=== PATIENT | female | born 1955 | race Caucasian/White ===

== ENCOUNTER 2016-07-06 09:20 | Emergency (ER) | payer OTHER ==
[~2016-07-06] VITALS: Wt 46.5 kg
[2016-07-06] MEDS ORDERED: PERCOCET 325 MG1 TA2 PO (14:09)
[2016-07-06] MEDS ORDERED: ZOFRAN ODT4 MG PO (14:09)
[2016-07-06 14:24] VITALS: BP 129/84
== END 2016-07-06 14:16 | disposition home or self-care (01) ==
LOC: ED 09:20
DX: J98.59 Other diseases of mediastinum, not elsewhere classified (principal); G95.89 Other specified diseases of spinal cord; F17.210 Nicotine dependence, cigarettes, uncomplicated
CPT/HCPCS: J1885; J2405; J3010; Q9967

== ENCOUNTER → 2018-01-06 | Outpatient (CLI) | payer OTHER ==
[~2018-01-06] MED LIST: PERCOCET 325 MG1 TA2 PO; ZOFRAN ODT4 MG PO
[2018-01-06 10:44] LABS: HEMATOCRIT 33.6 % (37.0-47.0); HEMOGLOBIN 10.8 g/dL (12.5-16.0); MEAN CELL VOLUME 86 fl (78-100); MEAN CORPUSCULAR HEMOGLOBIN 28 pg (27-31); MEAN CORPUSCULAR HGB CONC 32 g/dL (33-37); MEAN PLATELET VOLUME 9.6 fl (7.4-10.4); PLATELET COUNT 316 K/mm3 (130-400); RED BLOOD COUNT 3.89 M/mm3 (4.10-5.30); RED CELL DISTRIBUTION WIDTH 14.9 % (11.5-14.5); WHITE BLOOD COUNT 12.5 K/mm3 (4.8-10.8)
[2018-01-06 10:49] LABS: CALCIUM 8.1 mg/dL (8.4-10.2); POTASSIUM 3.2 mmol/L (3.6-5.0)
[2018-01-06 11:18] LABS: BAND 2 % (0-10); LYMPHOCYTE 9 % (20-51); MONOCYTE 13 % (3-10); NEUTROPHILS 76 % (42-75)
== END ==
LOC: LAB 09:18 → EDSTATUS 09:24 → LAB 09:26
PROVIDERS: Family Medicine
DX: J18.1 Lobar pneumonia, unspecified organism (principal)

== ENCOUNTER 2018-09-25 10:35 | Emergency (ER) | payer SELFPAY ==
[~2018-09-25] VITALS: Ht 172.7 cm; Wt 41.6 kg
[2018-09-25] MEDS ORDERED: OXYCODONE HCL10 M1 PO (11:22)
[2018-09-25] MEDS ORDERED: NEURONTIN600 M1 PO (11:22)
[2018-09-25 11:28] LABS: ALBUMIN 2.7 g/dL (3.4-4.8); HEMATOCRIT 29.9 % (37.0-47.0); HEMOGLOBIN 9.8 g/dL (12.5-16.0); MEAN CELL VOLUME 75 fl (78-100); MEAN CORPUSCULAR HGB CONC 33 g/dL (33-37); MEAN PLATELET VOLUME 9.4 fl (7.4-10.4); PLATELET COUNT 321 K/mm3 (130-400); RED BLOOD COUNT 4.01 M/mm3 (4.10-5.30); RED CELL DISTRIBUTION WIDTH 17.2 % (11.5-14.5); SODIUM 133 mmol/L (136-145); WHITE BLOOD COUNT 16.5 K/mm3 (4.8-10.8)
[2018-09-25 11:29] LABS: CALCIUM 8.6 mg/dL (8.3-10.5)
[2018-09-25 11:30] LABS: GLUCOSE 128 mg/dL (65-105)
[2018-09-25 11:31] LABS: TOTAL PROTEIN 6.8 g/dL (6.2-8.1)
[2018-09-25 11:32] LABS: CARBON DIOXIDE 27 mmol/L (23-31); PROTHROMBIN TIME 11.7 SECONDS (9.0-12.0); TOTAL BILIRUBIN 0.7 mg/dL (0.2-1.2)
[2018-09-25 11:36] LABS: AST-SGOT 15 U/L (5-34)
[2018-09-25 11:37] LABS: ALT/SGPT 13 U/L (0-55)
[2018-09-25 11:39] LABS: POTASSIUM 2.5 mmol/L (3.5-5.1)
[2018-09-25 11:44] LABS: TROPONIN-I < 0.03 ng/mL (<0.030)
[2018-09-25 11:48] LABS: BAND 10 % (0-10); LYMPHOCYTE 5 % (20-51); MEAN CORPUSCULAR HEMOGLOBIN 24 pg (27-31); MONOCYTE 11 % (3-10); NEUTROPHILS 74 % (42-75)
[2018-09-25 11:49] LABS: MICROCYTOSIS 2+
[2018-09-25 11:50] LABS: HYPOCHROMIA 1+
[2018-09-25 13:54] LABS: PH-URINE 5.5 (5.0 - 8.0); URINE APPEARANCE CLEAR; URINE COLOR YELLOW
[2018-09-25 13:55] LABS: URINE BILIRUBIN NEGATIVE (NEGATIVE); URINE BLOOD NEGATIVE (NEGATIVE); URINE GLUCOSE NEGATIVE (NEGATIVE); URINE KETONE NEGATIVE (NEGATIVE); URINE LEUKOCYTE ESTERASE NEGATIVE (NEGATIVE); URINE NITRATE NEGATIVE (NEGATIVE); URINE PROTEIN(semi-quant) TRACE mg/dL (NEGATIVE); URINE UROBILINOGEN NORMAL (NORMAL)
[2018-09-25 15:25] VITALS: BP 95/50
== END 2018-09-25 15:27 | disposition short-term general hospital (02) ==
LOC: ED 10:35
PROVIDERS: Nurse Practitioner Primary Care
DX: J18.1 Lobar pneumonia, unspecified organism (principal); E87.6 Hypokalemia; F17.210 Nicotine dependence, cigarettes, uncomplicated; Z88.0 Allergy status to penicillin; Z98.890 Other specified postprocedural states
CPT/HCPCS: J1956; J2060; J3480; Q9967

== ENCOUNTER 2019-06-29 16:25 | Emergency (ER) | payer SELFPAY ==
[~2019-06-29] VITALS: Ht 152.4 cm; Wt 39.5 kg
[~2019-06-29 16:25] MED LIST changes: +NEURONTIN600 M1 PO; +OXYCODONE HCL10 M1 PO
[2019-06-29 16:32] VITALS: BP 129/54
[2019-06-29] MEDS ORDERED: LORAZEPAM0.5 M1 PO (16:39)
[2019-06-29] MEDS ORDERED: PROAIR HFA0.09 MG/AC IH (16:39)
[2019-06-29 17:07] LABS: HEMATOCRIT 29.3 % (37.0-47.0); HEMOGLOBIN 9.5 g/dL (12.5-16.0); MEAN CELL VOLUME 73 fl (78-100); MEAN CORPUSCULAR HGB CONC 32 g/dL (33-37); MEAN PLATELET VOLUME 8.6 fl (7.4-10.4); RED BLOOD COUNT 4.03 M/mm3 (4.10-5.30); WHITE BLOOD COUNT 14.8 K/mm3 (4.8-10.8)
[2019-06-29 17:18] LABS: MEAN CORPUSCULAR HEMOGLOBIN 24 pg (27-31); PLATELET COUNT 659 K/mm3 (130-400)
[2019-06-29 17:26] LABS: ALBUMIN 2.6 g/dL (3.4-4.8); POTASSIUM 3.3 mmol/L (3.5-5.1)
[2019-06-29 17:29] LABS: TOTAL PROTEIN 6.3 g/dL (6.2-8.1)
[2019-06-29 17:30] LABS: TOTAL BILIRUBIN 0.4 mg/dL (0.2-1.2)
[2019-06-29 17:33] LABS: LYMPHOCYTE 4 % (20-51); MONOCYTE 9 % (3-10); NEUTROPHILS 87 % (42-75); POLYCHROMASIA 1+
[2019-06-29 17:34] LABS: HYPOCHROMIA 2+
== END 2019-06-29 18:05 | disposition left against medical advice (07) ==
LOC: ED 16:25
PROVIDERS: Nurse Practitioner
DX: J18.9 Pneumonia, unspecified organism (principal); E86.0 Dehydration; E46 Unspecified protein-calorie malnutrition; Z68.1 Body mass index [BMI] 19.9 or less, adult; Z85.118 Personal history of other malignant neoplasm of bronchus and lung
CPT/HCPCS: J7030